=== PATIENT | male | born 1980 | race Caucasian/White ===

== ENCOUNTER → 2021-08-28 14:20 | Outpatient (BNVA) | payer MEDICAID, SELFPAY | PROVIDERS: Visit Provider Psychiatry & Neurology Psychiatry | DX: F43.9 Reaction to severe stress, unspecified (principal); F12.20 Cannabis dependence, uncomplicated; F15.21 Other stimulant dependence, in remission; F20.9 Schizophrenia, unspecified | CPT/HCPCS: 99204 ==

== ENCOUNTER → 2021-09-14 13:18 | Outpatient (BNVA) | payer MEDICAID, SELFPAY | PROVIDERS: Visit Provider Counselor Mental Health | DX: F20.9 Schizophrenia, unspecified (principal); F12.20 Cannabis dependence, uncomplicated | CPT/HCPCS: 90834 ==

== ENCOUNTER 2021-09-19 22:09 | Inpatient (IN) | payer MEDICAID, SELFPAY ==
[2021-09-19 22:15] VITALS: BP 145/80; PULSE 102; RESP 18; TEMP 36.7; O2SAT 96; BMI 35.1
--- NOTE | 2021-09-19 22:25 | ED.C_ITS ---
HPI - Psych General: Chief Complaint: Psychiatric Symptoms Stated Complaint: 96 Judges Orders Time Seen by Provider: 09/19/21 22:11 Source: patient and police Mode of arrival: other (police) Limitations: no limitations History of Present Illness: HPI Narrative: 41-year-old male who has a history of schizophrenia bipolar disorder and methamphetamine abuse. Patient was placed under 96-hour hold by family states that he had been threatening to burn the house down with people inside his talk about became and of a serial killer he has became extremely violent at home. Patient here does appear agitated he denies any suicidal or homicidal ideations. Associated symptoms: Reports homicidal ideation Review of Systems Const: Denies: fever(s), chills, body aches or change in appetite Eyes: Denies: blurry vision or eye discomfort ENMT: Denies: throat pain or dental pain Card: Denies: chest pain Resp: Denies: dyspnea GI: Denies: abdominal pain, nausea, vomiting or diarrhea : Denies: dysuria Musc: Denies: neck pain or back pain Skin/Breast: Denies: rash Neuro: Denies: headache(s) Psych: Reports: homicidal ideation Cory/Lymph: Denies: easy bruising All/Imm: Denies: urticaria PFSH ED PFSH: Medical History Psychiatric care Psychiatric care Social History Smoking and tobacco status: current every day smoker cigarettes Packs smoked per day: 1 Years cigarettes smoked: 17 Quit status (tobacco): has tried quititng Number of times tried to quit tobacco: 5 Second hand smoke exposure: Yes Physical Exam Const: COMMON NORMALS: no acute distress, patient oriented x3 and healthy appearing HENMT: COMMON NORMALS: normocephalic and atraumatic HEAD & SCALP: normocephalic and atraumatic Eye: COMMON NORMALS: Equal, round and reactive pupils present and EOMs intact bilaterally PUPIL: Yes Equal, round and reactive pupils present Neck/C-Spine: COMMON NORMALS: full ROM and supple Chest: COMMONS NORMALS: normal inspection of the chest and normal palpation of entire chest wall Resp: COMMON NORMALS: normal respiratory effort, No retractions, No use of accessory muscles and clear to auscultation bilaterally AUSCULTATION: clear to auscultation bilaterally Cardio: COMMON NORMALS: regular rate, regular rhythm and No murmurs present (Cardio) RATE: regular rate RHYTHM: regular rhythm GI: COMMON NORMALS: Normal to inspection, nondistended, normoactive bowel sounds present, Soft to palpation, non-tender and no masses PALPATION: Yes Soft to palpation Extremity: COMMON NORMALS: normal to inspection and full ROM Neuro: COMMON NORMALS: patient oriented x3, moves all extremities and no focal motor deficits Psych: COMMON NORMALS: mental status grossly normal, Normal thought process present and cooperative ATTITUDE: Yes agitated THOUGHT PROCESS: Normal thought process present Skin: COMMON NORMALS: no rashes or lesions noted and no wounds GENERAL SKIN EXAM: no rashes or lesions noted Course Vital Signs: Vital signs: Vital Signs Temperature 98.1 F 09/19/21 22:15 Pulse Rate 102 H 09/19/21 22:15 Respiratory Rate 18 09/19/21 22:15 Blood Pressure 145/80 09/19/21 22:15 Pulse Oximetry 96 09/19/21 22:15 MDM - Psych MDM Narrative: Medical decision making narrative: Patient presents with police for homicidal ideations. Patient is on a 96-hour hold by family and police p atient is medically cleared has been cooperative here spoke to psychiatrist will admit the psychiatric unit. Lab Data: Labs: Lab Results 09/19/21 09/19/21 22:30 22:30 WBC 7.2 10^3/uL 10^3/ uL (4.0-10.0) RBC 4.82 10^6/uL 10^6 /uL (4.1-5.3) Hgb 15.3 g/dL g/dL (11.7-16.6) Hct 44.4 % % (42.0-52.0) MCV 92.1 fl fl (80-94) MCH 31.7 pg pg (28.0-34.0) MCHC 34.5 g/dL g/dL (30.0-36.0) RDW 11.9 % L % (12.1-15.1) Plt Count 227 10^3/cmm 10^3 /cmm (130-400) MPV 10.8 fL H fL (7.4-10.4) Neut % (Auto) 50.6 % % Lymph % (Auto) 36.3 % % Shannon % (Auto) 9.8 % % Eos % (Auto) 2.8 % % Baso % (Auto) 0.4 % % Neut # (Auto) 3.62 10^3/uL 10^3 /uL (1.8-7.7) Lymph # (Auto) 2.6 10^3/uL 10^3/ uL (0.8-4.8) Shannon # (Auto) 0.7 10^3/uL 10^3/ uL (0.2-0.9) Eos # (Auto) 0.2 10^3/uL 10^3/ uL (0.0-0.8) Baso # (Auto) 0.0 10^3/uL 10^3/ uL (0.0-0.1) Nucleated RBC % (a uto) 0 % % Nucleated RBCs # 0.0 /100WBC /100W BC Sodium 136 mmol/L mmol/L (136-145) Potassium 4.1 mmol/L mmol/L (3.5-5.1) Chloride 98 mmol/L mmol/L (98-107) Carbon Dioxide 25 mmol/L mmol/L (22-29) Anion Gap 17.1 (5-19) BUN 9 mg/dL mg/dL (6-20) Creatinine 1.1 mg/dL mg/dL (0.7-1.2) GFR Calculation 74.5 mL/min L mL/ min (90-130) Glucose 84 mg/dL mg/dL (65-115) Calculated Osmolal ity 280 mOsm/kg L mOs m/kg (285-295) Calcium 9.5 mg/dL mg/dL (8.5-10.5) Total Bilirubin 0.4 mg/dL mg/dL (0.15-1.2) AST 64 U/L H U/L (0-40) ALT 42 U/L H U/L (0-41) Alkaline Phosphata se 57 IU/L IU/L (40-130) Total Protein 7.1 g/dL g/dL (6.6-8.7) Albumin 4.4 g/dL g/dL (3.5-5.2) Globulin 2.7 g/dL g/dL (1.3-4.6) Salicylates 0.6 mg/dL L mg/dL (3-10) Acetaminophen < 5.0 ug/mL L ug/ mL (10-30) Ethyl Alcohol < 10 mg/dL mg/dL (0-10) EKG Data^: EKG 1: Attestation: I personally reviewed and interpreted this EKG as follows: EKG interpretation date: 09/19/21 EKG interpretation time: 23:04 Interpretation: nsr hr [address] or t wave abnormalities qrs 91 qtc 391 Discharge Plan Discharge Patient Disposition: Admitted As Inpatient Clinical Impression: Bipolar disorder, Homicidal thoughts Condition: Stable Coding Level of Care Code ED Overhead Crane Technician for Chg Fwd Exam Comprehensive
[2021-09-19 22:42] LABS: Basophils % 0.4 %; Eosinophils # 0.2 10^3/uL (0.0-0.8); Eosinophils % 2.8 %; Hematocrit 44.4 % (42.0-52.0); Hemoglobin 15.3 g/dL (11.7-16.6); Lymphocytes # 2.6 10^3/uL (0.8-4.8); Lymphocytes % 36.3 %; Mean Corpuscular HGB Conc 34.5 g/dL (30.0-36.0); Mean Corpuscular Hemoglobin 31.7 pg (28.0-34.0); Mean Corpuscular Volume 92.1 fl (80-94); Mean Platelet Volume 10.8 fL (7.4-10.4); Monocytes # 0.7 10^3/uL (0.2-0.9); Monocytes % 9.8 %; Neutrophils # 3.62 10^3/uL (1.8-7.7); Neutrophils % 50.6 %; Nucleated Red Blood Cells % 0 %; Platelet Count 227 10^3/cmm (130-400); Red Blood Count 4.82 10^6/uL (4.1-5.3); Red Cell Distribution Width 11.9 % (12.1-15.1); White Blood Count 7.2 10^3/uL (4.0-10.0)
[2021-09-19] MEDS: haloperidol 5 mg Tablet PO (22:51)
[2021-09-19] MEDS: LORazepam 1 mg Tablet PO (22:51)
[2021-09-19 23:08] LABS: Alanine Aminotransferase 42 U/L (0-41); Albumin Level 4.4 g/dL (3.5-5.2); Alkaline Phosphatase 57 IU/L (40-130); Anion Gap 17.1 (5-19); Aspartate Amino Transferase 64 U/L (0-40); Blood Urea Nitrogen 9 mg/dL (6-20); Calcium 9.5 mg/dL (8.5-10.5); Carbon Dioxide 25 mmol/L (22-29); Chloride 98 mmol/L (98-107); Creatinine Clr Calc Pharmacy 109.1642; Globulin 2.7 g/dL (1.3-4.6); Glomerular Filtration Rate 74.5 mL/min (90-130); Glucose 84 mg/dL (65-115); Osmolality Calculated 280 mOsm/kg (285-295); Potassium 4.1 mmol/L (3.5-5.1); Salicylate 0.6 mg/dL (3-10); Sodium 136 mmol/L (136-145); Total Bilirubin 0.4 mg/dL (0.15-1.2); Total Protein 7.1 g/dL (6.6-8.7)
[2021-09-19 23:11] LABS: Acetaminophen < 5.0 ug/mL (10-30); Alcohol Level < 10 mg/dL (0-10)
[2021-09-20 01:00] VITALS: BP 140/79; PULSE 84; RESP 20; O2SAT 96
[2021-09-20 06:31] VITALS: BP 111/79; PULSE 63; RESP 16; O2SAT 98
[2021-09-20 08:00] VITALS: BP 141/79; PULSE 61; RESP 16; TEMP 36.4; O2SAT 96
[2021-09-20 12:28] LABS: SARS Covid-2 Antigen Negative (Negative)
[2021-09-20 12:52] LABS: Amphetamines Screen Urine Negative (Negative); Barbiturates Screen Urine Negative (Negative); Benzodiazepines Screen Urine Positive (Negative); Cocaine Screen Urine Negative (Negative); Opiate Screen Urine Negative (Negative); PCP Screen Urine Negative (Negative); THC Screen Urine Positive (Negative)
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
--- NOTE | 2021-09-20 17:21 | PC.NURSE ---
Pt requesting his Risperadone
--- NOTE | 2021-09-20 17:52 | PC.NURSE ---
Report called to NPU, report given to SHARRI Ahumada.
[2021-09-20 18:23] VITALS: BP 141/79; PULSE 61; RESP 16; TEMP 36.4; O2SAT 96
[2021-09-20 18:25] VITALS: BP 118/73; PULSE 83; RESP 18; TEMP 36.7; O2SAT 95
[2021-09-20 20:18] VITALS: BP 115/75; PULSE 85; RESP 18; TEMP 36.7; O2SAT 96
[2021-09-20] MEDS: risperiDONE 0.25 mg Tablet 0.5 MG PO (21:09)
[2021-09-20] MEDS: trazodone 50 mg Tablet 100 MG PO (21:10)
[2021-09-21 06:00] VITALS: BP 107/66; PULSE 69; RESP 17; TEMP 36.5; O2SAT 97
[2021-09-21] MEDS: risperiDONE 0.25 mg Tablet 0.5 MG PO ×2 (08:51→17:26)
[2021-09-21] MEDS: fluticasone nasal spray 16gm Btl 1 SPRAY INTRANASAL (08:52)
[2021-09-21] MEDS: loratadine 10 mg Tablet PO (08:52)
--- NOTE | 2021-09-21 11:05 | P.NPUPN_ITS ---
Subjective NPU Subjective: Interval history: He says that he is doing well. He is pleasant and cooperative. There have been no issues with the staff. He was overheard by a staff member talking on the phone with the family. The specifics were not relayed but they said that from his side of the conversation it led some credence to the affidavit. He continues to deny that there have been any problems. Mental Status Exam MSE Comments: This is a 41-year-old overweight male of about the s tated age who is in no acute distress. He was very pleasant and cooperative with the evaluation. psychomotor activity is normal. Speech is at a regular rate and rhythm, normal volume, good articulation, not pressured. Alert, oriented X3 Attention and concentration appears to be normal. Memory is intact Mood is good. Affect is euthymic. Thought process is logical and goal-directed. Thought content: Denies auditory and visual hallucinations. No delusions or paranoia are noted. No current suicidal ideation, and no homicidal ideation. Fund of knowledge is about average. Insight and judgment appear to be limited by the affidavit but seems good at this time. Impulse control is poor compared to the affidavit but appears to be good at this time. Cognition: Patient Appearance: Appropriate Level of Consciousness: Awake, Alert, Appropriate and Follows Commands Patient Cognition Impaired: No Ability to Follow Directions: Excellent Patient Orientation (long list): Person, Place, Time, Name, Age and Birthday Comprehension Ability: No Impairment Hallucination Type: None Delusion Description: Not Present Thought Process: Circumstantial Affect: Affect Description: Appropriate Behavior: Patient Behavior: Appropriate Speech Pattern: Appropriate Vitals/I&O/Wt Last Vital Signs Temp 97.9 F 09/22/21 06:00 Pulse 80 09/22/21 06:00 Resp 17 09/22/21 06:00 BP 127/69 09/22/21 06:00 Pulse Ox 96 09/22/21 06:00 Data NPU : 09/19/21 22:30 09/19/21 22:30 A&P Assessment and plan (1) Schizophrenia: Status: Acute (2) Methamphetamine use disorder, severe, in sustained remission: Status: Acute (3) Cannabis use disorder, severe, dependence: Status: Acute (4) Bipolar disorder: Status: Acute (5) Homicidal thoughts: Status: Acute Additional A&P Information This is a 41-year-old male with many past psychiatric admissions for schizophrenia. He says that his diagnosis is schizoaffective disorder and biopolar disorder. There is an affidavit from his sister saying that he was t hreatening to burn the house down and become a serial killer. He says it is because he refused to get her some marijuana products using his marijuana card. He does not seem to be psychotic at this time on interview. Plan: 1. Continue home medications of Risperdal 0.5 mg twice a day and trazodone 100 mg at bedtime 2. Continue every 15 minute checks for safety. 3. Encourage individual, group and milieu therapies. 4. Encourage sober living treatment after discharge at the highest level of ca re to which he is willing to commit. 5. We will monitor for safety for himself in the community prior to discharge. Involuntary Hold Information 96 Hour Hold: 96 Hour Involuntary Admission: Yes 96 Hour Hold Ending Date: 09/26/21 96 Hour Hold Ending Time: 22:15 Attestations NPU Medical Necessity Statement*: Inpatient hospitalization is medically necessary and the clinically appropriate intervention at this time. We will initiate medications and make changes as indicated. Coding Level of Care Code Acute Legislative Director for Lyudmila Beebe Diagnoses Schizophrenia F20.9 Methamphetamine use disorder, severe, in sustained remission F15.21 Cannabis use disorder, severe, dependence F12.20 Bipolar disorder F31.9 Homicidal thoughts R45.850
[2021-09-21 14:00] VITALS: BP 124/73; PULSE 67; RESP 16; TEMP 36.6; O2SAT 96
[2021-09-21 20:20] VITALS: RESP 17
[2021-09-21] MEDS: trazodone 50 mg Tablet 100 MG PO (20:55)
[2021-09-22 06:00] VITALS: BP 127/69; PULSE 80; RESP 17; TEMP 36.6; O2SAT 96
[2021-09-22] MEDS: fluticasone nasal spray 16gm Btl 1 SPRAY INTRANASAL (10:18)
[2021-09-22] MEDS: loratadine 10 mg Tablet PO (10:19)
[2021-09-22] MEDS: risperiDONE 1 mg Tablet 0.5 MG PO ×2 (10:19→17:18)
[2021-09-22 14:00] VITALS: BP 102/74; PULSE 65; RESP 18; TEMP 36.9; O2SAT 98
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
[2021-09-22 20:34] VITALS: RESP 17
[2021-09-22] MEDS: trazodone 50 mg Tablet 100 MG PO (21:49)
[2021-09-23 06:00] VITALS: BP 111/72; PULSE 61; RESP 18; TEMP 36.7; O2SAT 98; BMI 35.1
[2021-09-23] MEDS: risperiDONE 0.25 mg Tablet 0.5 MG PO ×2 (09:28→20:40)
[2021-09-23] MEDS: fluticasone nasal spray 16gm Btl 1 SPRAY INTRANASAL (09:28)
[2021-09-23] MEDS: loratadine 10 mg Tablet PO (09:28)
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
[2021-09-23 14:00] VITALS: BP 125/66; PULSE 81; RESP 16; TEMP 36.7; O2SAT 95
[2021-09-23] MEDS: nicotine 2 mg Gum BUCCAL (14:46)
--- NOTE | 2021-09-23 15:51 | PC.NURSE ---
Patient has been up and interaction well with others. Did report having increased Nicotine cravings and received Nicotine gum to good effect. In dayroom playing cards at this time.
[2021-09-23] MEDS: trazodone 50 mg Tablet 100 MG PO (20:40)
[2021-09-23 21:30] VITALS: BP 119/78; PULSE 73; RESP 18; TEMP 36.7; O2SAT 97
[2021-09-24] MEDS: risperiDONE 0.25 mg Tablet 0.5 MG PO ×2 (05:40→20:33)
[2021-09-24 06:00] VITALS: BP 110/75; PULSE 61; RESP 17; TEMP 36.4; O2SAT 97
[2021-09-24] MEDS: loratadine 10 mg Tablet PO (08:48)
[2021-09-24] MEDS: fluticasone nasal spray 16gm Btl 1 SPRAY INTRANASAL (08:49)
--- NOTE | 2021-09-24 13:28 | P.NPUPN_ITS ---
Subjective NPU Subjective: Interval history: He continues to say that he is doing well. He talked again about being loud and aggressive and can get agitated and angry easily when he is not on the risperidone. He is much better at dealing with things when he is taking his risperidone daily. He says that he does not have difficulty remembering to take it twice a day. He says that taking it in the morning helps him get the day started off well. He knows it is very important for him. Mental Status Exam MSE Comments: This is a 41-year-old overweight male of about the stated age who is in no acute distress. He was very pleasant and cooperative with the evaluation. psychomotor activity is normal. Speech is at a regular rate and rhythm, normal volume, good articulation, not pressured. Alert, oriented X3 Attention and concentration appears to be normal. Memory is intact Mood is good. Affect is euthymic. Thought process is logical and goal-directed. Thought content: Denies auditory and visual hallucinations. No delusions or paranoia are noted. No current suicidal ideation, and no homicidal ideation. Fund of knowledge is about average. Insight and judgment appear to be limited by the affidavit but seems good at this time. Impulse control is poor compared to the affidavit but appears to be good at this time. Cognition: Patient Appearance: Appropriate Level of Consciousness: Awake, Alert, Appropriate and Follows Commands Patient Cognition Impaired: No Ability to Follow Directions: Excellent Patient Orientation (long list): Person, Place, Time, Name, Age and Birthday Comprehension Ability: No Impairment Hallucination Type: None Delusion Description: Not Present Thought Process: Circumstantial Affect: Affect Description: Appropriate Behavior: Patient Behavior: Appropriate Speech Pattern: Appropriate Vitals/I&O/Wt Last Vital Signs Temp 97.6 F 09/24/21 06:00 Pulse 61 09/24/21 06:00 Resp 17 09/24/21 06:00 BP 110/75 09/24/21 06:00 Pulse Ox 97 09/24/21 06:00 Weight last 48 hrs Weight 107.955 kg Data NPU : 09/19/21 22:30 09/19/21 22:30 A&P Assessment and plan (1) Schizophrenia: Status: Acute (2) Methamphetamine use disorder, severe, in sustained remission: Status: Acute (3) Cannabis use disorder, severe, dependence: Status: Acute (4) Bipolar disorder: Status: Acute (5) Homicidal thoughts: Status: Acute Additional A&P Information This is a 41-year-old male with many past psychiatric admissions for schizophrenia. He says that his diagnosis is schizoaffective disorder and biopolar disorder. There is an affidavit from his sister saying that he was th reatening to burn the house down and become a serial killer. He says it is because he refused to get her some marijuana products using his marijuana card. He does not seem to be psychotic at this time on interview. Plan: 1. Continue home medications of Risperdal 0.5 mg twice a day and trazodone 100 mg at bedtime 2. Continue every 15 minute checks for safety. 3. Encourage individual, group and milieu therapies. 4. Encourage sober living treatment after discharge at the highest level of car e to which he is willing to commit. 5. We will monitor for safety for himself in the community prior to discharge. Involuntary Hold Information 96 Hour Hold: 96 Hour Involuntary Admission: Yes 96 Hour Hold Ending Date: 09/26/21 96 Hour Hold Ending Time: 22:15 Attestations NPU Medical Necessity Statement*: Inpatient hospitalization is medically necessary and the clinically appropriate intervention at this time. We will initiate medications and make changes as indicated. Coding Level of Care Code Acute Social Sciences Chair for Lyudmila Beebe Diagnoses Schizophrenia F20.9 Methamphetamine use disorder, severe, in sustained remission F15.21 Cannabis use disorder, severe, dependence F12.20 Bipolar disorder F31.9 Homicidal thoughts R45.850
--- NOTE | 2021-09-24 13:58 | NPU.GN ---
[facility] Topic:Group Topic:Coping Mechanisms General Mood of Group: Tanner did attend and participate in group today. He socialized well with others and this investigative writer. His hygiene was good and he had a good mindset.
[2021-09-24 14:00] VITALS: BP 124/79; PULSE 68; RESP 16; TEMP 36.4; O2SAT 97
--- NOTE | 2021-09-24 16:25 | PC.SOCIAL ---
Completed a [facility] new client packet with client today for [facility] services.
[2021-09-24] MEDS: trazodone 50 mg Tablet 100 MG PO (20:33)
[2021-09-24 21:03] VITALS: BP 125/80; PULSE 89; RESP 18; O2SAT 97
[2021-09-25] MEDS: risperiDONE 0.25 mg Tablet 0.5 MG PO (05:09)
[2021-09-25 06:00] VITALS: RESP 18
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
[2021-09-25 10:02] VITALS: BP 125/80; PULSE 95; RESP 18
[2021-09-25 10:15] VITALS: BP 125/80; PULSE 95; RESP 18
[2021-09-25] MEDS: fluticasone nasal spray 16gm Btl 1 SPRAY INTRANASAL (10:17)
[2021-09-25] MEDS: nicotine 2 mg Gum BUCCAL (10:18)
[2021-09-25] MEDS: loratadine 10 mg Tablet PO (10:18)
== END 2021-09-25 12:50 | disposition home or self-care (01) | DRG 885 ==
LOC: ER 09-20 01:49 → ER IP 09-20 02:54 → NP 09-20 11:39
PROVIDERS: Family Medicine; Admitting Provider Psychiatry & Neurology Psychiatry; Emergency Provider Emergency Medicine; Visit Provider Psychiatry & Neurology Psychiatry
DX: F25.0 Schizoaffective disorder, bipolar type (principal); F15.11 Other stimulant abuse, in remission; F12.20 Cannabis dependence, uncomplicated; R45.850 Homicidal ideations; F17.210 Nicotine dependence, cigarettes, uncomplicated; Z91.51 Personal history of suicidal behavior; F60.81 Narcissistic personality disorder; K76.0 Fatty (change of) liver, not elsewhere classified
CPT/HCPCS: 80053; 80306; 80307; 85025; 87426; 97150; 97165; 99285

== ENCOUNTER 2021-10-01 22:37 | Inpatient (IN) | payer MEDICAID, SELFPAY ==
--- NOTE | 2021-10-01 22:43 | W.ED.PSYCHS ---
HPI - Psych General: Chief Complaint: Psychiatric Symptoms Stated Complaint: HI Time Seen by Provider: 10/01/21 22:38 Source: patient and EMS Mode of arrival: EMS Limitations: no limitations History of Present Illness: HPI Narrative: 41-year-old male has a history of schizophrenia along with severe anxiety he was admitted here 2 weeks ago under 96-hour hold for this. He states since being home he had worsening anxiety and anger issues he states that he went to the police department tonight wanting to come in to be placed in the psych slade because he is having homicidal thoughts he is having thoughts of stabbing his sister and her boyfriend and the neck to kill them. Denies any suicidality denies any worsening improving factors. Associated symptoms: Reports homicidal ideation Review of Systems Const: Denies: fever(s), chills, body aches or change in appetite Eyes: Denies: blurry vision or eye discomfort ENMT: Denies: throat pain or dental pain Card: Denies: chest pain Resp: Denies: dyspnea GI: Denies: abdominal pain, nausea, vomiting or diarrhea : Denies: dysuria Musc: Denies: neck pain or back pain Skin/Breast: Denies: rash Neuro: Denies: headache(s) Psych: Reports: anxiety and homicidal ideation Cory/Lymph: Denies: easy bruising All/Imm: Denies: urticaria PFSH ED PFSH: Medical History Psychiatric care Psychiatric care Social History Smoking and tobacco status: current every day smoker cigarettes Packs smoked per day: 1 Years cigarettes smoked: 17 Quit status (tobacco): has tried quititng Number of times tried to quit tobacco: 5 Second hand smoke exposure: Yes Physical Exam Const: COMMON NORMALS: no acute distress, patient oriented x3 and healthy appearing HENMT: COMMON NORMALS: normocephalic and atraumatic HEAD & SCALP: normocephalic and atraumatic Eye: COMMON NORMALS: Equal, round and reactive pupils present and EOMs intact bilaterally PUPIL: Yes Equal, round and reactive pupils present Neck/C-Spine: COMMON NORMALS: full ROM and supple Chest: COMMONS NORMALS: normal inspection of the chest and normal palpation of entire chest wall Resp: COMMON NORMALS: normal respiratory effort, No retractions, No use of accessory muscles and clear to auscultation bilaterally AUSCULTATION: clear to auscultation bilaterally Cardio: COMMON NORMALS: regular rate, regular rhythm and No murmurs present (Cardio) RATE: regular rate RHYTHM: regular rhythm GI: COMMON NORMALS: Normal to inspection, nondistended, normoactive bowel sounds present, Soft to palpation, non-tender and no masses PALPATION: Yes Soft to palpation Extremity: COMMON NORMALS: normal to inspection and full ROM Neuro: COMMON NORMALS: patient oriented x3, moves all extremities and no focal motor deficits Psych: COMMON NORMALS: mental status grossly normal and cooperative MOOD & AFFECT: Yes anxious THOUGHT CONTENT: Yes Homicidality present Skin: COMMON NORMALS: no rashes or lesions noted and no wounds GENERAL SKIN EXAM: no rashes or lesions noted Course Vital Signs: Vital signs: Vital Signs Temperature 98.9 F 10/01/21 22:45 Pulse Rate 108 H 10/01/21 22:45 Respiratory Rate 18 10/01/21 22:45 Blood Pressure 153/79 10/01/21 22:45 Pulse Oximetry 96 10/01/21 22:45 MDM - Psych MDM Narrative: Medical decision making narrative: Patient presents here with homicidal ideation along with anxiety patient placed under 96-hour hold has been cooperative here is medically cleared I spoke to psychiatrist and will admit at this time. Lab Data: Labs: Lab Results 10/01/21 10/01/21 22:45 22:45 WBC 11.7 10^3/uL H 10 ^3/uL (4.0-10.0) RBC 4.90 10^6/uL 10^6 /uL (4.1-5.3) Hgb 15.5 g/dL g/dL (11.7-16.6) Hct 44.7 % % (42.0-52.0) MCV 91.2 fl fl (80-94) MCH 31.6 pg pg (28.0-34.0) MCHC 34.7 g/dL g/dL (30.0-36.0) RDW 11.7 % L % (12.1-15.1) Plt Count 240 10^3/cmm 10^3 /cmm (130-400) MPV 10.1 fL fL (7.4-10.4) Neut % (Auto) 79.4 % % Lymph % (Auto) 14.1 % % Harris % (Auto) 5.7 % % Eos % (Auto) 0.3 % % Baso % (Auto) 0.3 % % Neut # (Auto) 9.32 10^3/uL H 10 ^3/uL (1.8-7.7) Lymph # (Auto) 1.7 10^3/uL 10^3/ uL (0.8-4.8) Harris # (Auto) 0.7 10^3/uL 10^3/ uL (0.2-0.9) Eos # (Auto) 0.0 10^3/uL 10^3/ uL (0.0-0.8) Baso # (Auto) 0.0 10^3/uL 10^3/ uL (0.0-0.1) Nucleated RBC % (a uto) 0 % % Nucleated RBCs # 0.0 /100WBC /100W BC Sodium 137 mmol/L mmol/L (136-145) Potassium 4.1 mmol/L mmol/L (3.5-5.1) Chloride 100 mmol/L mmol/L (98-107) Carbon Dioxide 20 mmol/L L mmol/ L (22-29) Anion Gap 21.1 H (5-19) BUN 13 mg/dL mg/dL (6-20) Creatinine 1.1 mg/dL mg/dL (0.7-1.2) GFR Calculation 74.5 mL/min L mL/ min (90-130) Glucose 110 mg/dL mg/dL (65-115) Calculated Osmolal ity 285 mOsm/kg mOsm/ kg (285-295) Calcium 9.2 mg/dL mg/dL (8.5-10.5) Total Bilirubin 0.4 mg/dL mg/dL (0.15-1.2) AST 24 U/L U/L (0-40) ALT 39 U/L U/L (0-41) Alkaline Phosphata se 64 IU/L IU/L (40-130) Total Protein 7.2 g/dL g/dL (6.6-8.7) Albumin 4.7 g/dL g/dL (3.5-5.2) Globulin 2.5 g/dL g/dL (1.3-4.6) Salicylates < 0.3 mg/dL L mg/ dL (3-10) Acetaminophen < 5.0 ug/mL L ug/ mL (10-30) Ethyl Alcohol < 10 mg/dL mg/dL (0-10) Discharge Plan Discharge Patient Disposition: Admitted As Inpatient Clinical Impression: Acute anxiety, Homicidal thoughts Condition: Stable Coding Level of Care Code ED [employer] Assistant for Lyudmila Fwd Exam Comprehensive
[2021-10-01 22:45] VITALS: BP 153/79; PULSE 108; RESP 18; TEMP 37.2; O2SAT 96; BMI 36.9
[2021-10-01 22:54] LABS: Basophils % 0.3 %; Eosinophils % 0.3 %; Hematocrit 44.7 % (42.0-52.0); Hemoglobin 15.5 g/dL (11.7-16.6); Lymphocytes # 1.7 10^3/uL (0.8-4.8); Lymphocytes % 14.1 %; Mean Corpuscular HGB Conc 34.7 g/dL (30.0-36.0); Mean Corpuscular Hemoglobin 31.6 pg (28.0-34.0); Mean Corpuscular Volume 91.2 fl (80-94); Mean Platelet Volume 10.1 fL (7.4-10.4); Monocytes # 0.7 10^3/uL (0.2-0.9); Monocytes % 5.7 %; Neutrophils # 9.32 10^3/uL (1.8-7.7); Neutrophils % 79.4 %; Nucleated Red Blood Cells % 0 %; Platelet Count 240 10^3/cmm (130-400); Red Cell Distribution Width 11.7 % (12.1-15.1); White Blood Count 11.7 10^3/uL (4.0-10.0)
[2021-10-01 23:15] LABS: Acetaminophen < 5.0 ug/mL (10-30); Alanine Aminotransferase 39 U/L (0-41); Albumin Level 4.7 g/dL (3.5-5.2); Alcohol Level < 10 mg/dL (0-10); Alkaline Phosphatase 64 IU/L (40-130); Anion Gap 21.1 (5-19); Aspartate Amino Transferase 24 U/L (0-40); Blood Urea Nitrogen 13 mg/dL (6-20); Calcium 9.2 mg/dL (8.5-10.5); Carbon Dioxide 20 mmol/L (22-29); Chloride 100 mmol/L (98-107); Globulin 2.5 g/dL (1.3-4.6); Glomerular Filtration Rate 74.5 mL/min (90-130); Glucose 110 mg/dL (65-115); Osmolality Calculated 285 mOsm/kg (285-295); Potassium 4.1 mmol/L (3.5-5.1); Salicylate < 0.3 mg/dL (3-10); Sodium 137 mmol/L (136-145); Total Bilirubin 0.4 mg/dL (0.15-1.2); Total Protein 7.2 g/dL (6.6-8.7)
[2021-10-01] MEDS: LORazepam 2 mg Tablet PO (23:31)
[2021-10-01 23:48] VITALS: BP 129/85; PULSE 95; RESP 16; TEMP 37; O2SAT 98
[2021-10-02 00:23] VITALS: BP 156/94; PULSE 106; RESP 22; O2SAT 97
--- NOTE | 2021-10-02 04:07 | PC.NURSE ---
Educated patient on need to collect urine specimen when he voids. Patient verbalizes understanding.
[2021-10-02 06:00] VITALS: RESP 18
[2021-10-02] MEDS: fluticasone nasal spray 16gm Btl 1 SPRAY INTRANASAL (08:46)
[2021-10-02] MEDS: loratadine 10 mg Tablet PO (08:46)
[2021-10-02] MEDS: risperiDONE 0.25 mg Tablet 0.5 MG PO ×2 (08:46→18:12)
[2021-10-02] MEDS: nicotine 2 mg Gum BUCCAL ×2 (09:30→12:33)
--- NOTE | 2021-10-02 09:44 | PC.NURSE ---
Vaccine Patient received PRN Flu vaccine to left deltoid without issue. Took PRN Nicotine gum for cravings to good effect.
[2021-10-02 14:00] VITALS: BP 156/94; PULSE 106; RESP 18; TEMP 37; O2SAT 97
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
[2021-10-02 21:21] VITALS: RESP 17
[2021-10-03 06:00] VITALS: BP 116/81; PULSE 97; RESP 16; O2SAT 96
[2021-10-03] MEDS: risperiDONE 0.25 mg Tablet 0.5 MG PO (08:46)
[2021-10-03] MEDS: loratadine 10 mg Tablet PO (08:46)
[2021-10-03] MEDS: fluticasone nasal spray 16gm Btl 1 SPRAY INTRANASAL (08:46)
[2021-10-03 08:56] LABS: Amphetamines Screen Urine Negative (Negative); Barbiturates Screen Urine Negative (Negative); Benzodiazepines Screen Urine Positive (Negative); Cocaine Screen Urine Negative (Negative); Opiate Screen Urine Negative (Negative); PCP Screen Urine Negative (Negative); THC Screen Urine Positive (Negative)
[2021-10-03] MEDS: nicotine 2 mg Gum BUCCAL ×3 (09:45→17:47)
[2021-10-03 14:00] VITALS: BP 124/76; PULSE 83; RESP 17; TEMP 36.8; O2SAT 96
[2021-10-03] MEDS: risperiDONE 1 mg Tablet PO (17:14)
--- NOTE | 2021-10-03 17:56 | W.PM.NPUPNS ---
Subjective NPU Subjective: Interval history: Patient presents today reporting that he is feeling significantly better and has been in communication with his mother and sister. He does a plan to either stay with a friend or a topical SOC if his sister and her significant other are not out of his place. He endorsed a plan to set up electricity to further increase the likelihood that they would leave. He reports that the landlord is in agreement but they have no way to expedite affection. He denied any lethality. Mental Status Exam MSE Comments: This is an obese white male in hospital scrubs with adequate grooming and eye contact. No abnormal movements cooperative exam in no acute distress. Speech was normal rate and volume mood described as better, affect congruent. Thought process organized. Thought content: Patient denied suicidal or homicidal ideation, there were no delusions reported or noted, he denied auditory or visual hallucinations. Attention and concentration were intact memory appeared reliable but none were formally tested. He is alert and oriented x3. Insight appears fair and impulse, control is limited, but improving. Vitals/I&O/Wt Last Vital Signs Temp 98.3 F 10/03/21 22:00 Pulse 74 10/03/21 22:00 Resp 15 10/03/21 22:00 BP 132/86 10/03/21 22:00 Pulse Ox 97 10/03/21 22:00 Data NPU : 10/01/21 22:45 10/01/21 22:45 A&P Additional A&P Information (1) Acute anxiety: (2) Schizophrenia: (3) Homicidal thoughts: (4) Methamphetamine use disorder, severe, in sustained remission: (5) Cannabis use disorder, severe, dependence: (6) Trauma and stressor-related disorder: Additional A&P Information This is a 41-year-old white male with a long history of mental health and addiction issues who presents back to the hospital based on the same issues from his initial presentation that ended a week ago endorsing homicidal thoughts. 1. Continue current medication. Increased Risperdal to 1 mg p.o. twice daily. 2. Continue every 15 minute checks for safety. 3. Encourage individual, group and milieu therapies. 4. Encourage sober living treatment after discharge at the highest level of care to which he is willing to commit. Involuntary Hold Information 96 Hour Hold: 96 Hour Involuntary Admission: Yes 96 Hour Hold Ending Date: 12/10/21 96 Hour Hold Ending Time: 22:57 Attestations NPU Medical Necessity Statement*: Inpatient hospitalization is medically necessary and the clinically appropriate intervention at this time. We will monitor medication to make changes as indicated. Likely length of stay 1-3 days. Likely discharge in the morning. Coding Level of Care Code Acute Operations Specialist for [facility]
[2021-10-03] MEDS: trazodone 50 mg Tablet 100 MG PO (20:58)
[2021-10-03 22:00] VITALS: BP 132/86; PULSE 74; RESP 15; TEMP 36.8; O2SAT 97
[2021-10-04] MEDS: nicotine 2 mg Gum BUCCAL ×3 (05:43→12:17)
[2021-10-04 06:00] VITALS: BP 122/74; PULSE 70; RESP 15; TEMP 36.6; O2SAT 96
[2021-10-04] MEDS: risperiDONE 1 mg Tablet PO (08:43)
[2021-10-04] MEDS: loratadine 10 mg Tablet PO (08:43)
[2021-10-04] MEDS: fluticasone nasal spray 16gm Btl 1 SPRAY INTRANASAL (10:23)
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
[2021-10-04 12:18] VITALS: BP 122/74; PULSE 70; RESP 15; TEMP 36.6; O2SAT 96
[2021-10-04 12:21] VITALS: BP 122/74; PULSE 70; RESP 15; TEMP 36.6; O2SAT 96
== END 2021-10-04 13:53 | disposition home or self-care (01) | DRG 885 ==
LOC: ER 23:13 → NP 23:39
PROVIDERS: Admitting Provider Psychiatry & Neurology Psychiatry; Emergency Provider Emergency Medicine; PCP Family Medicine; Visit Provider Psychiatry & Neurology Psychiatry
DX: F20.9 Schizophrenia, unspecified (principal); F41.9 Anxiety disorder, unspecified; R45.850 Homicidal ideations; Z63.8 Other specified problems related to primary support group; F15.21 Other stimulant dependence, in remission; F12.20 Cannabis dependence, uncomplicated; F17.210 Nicotine dependence, cigarettes, uncomplicated; F43.9 Reaction to severe stress, unspecified; Z81.8 Family history of other mental and behavioral disorders; Z91.51 Personal history of suicidal behavior; Z65.3 Problems related to other legal circumstances
CPT/HCPCS: 80053; 80306; 80307; 85025; 90471; 90686; 97150; 97165; 99285